=== PATIENT | female | born 1955 | race Caucasian/White ===

== ENCOUNTER → 2017-07-28 | Outpatient (CLI) | payer OTHER ==
[~2017-07-28] MED LIST: ACETAMINOPHEN-1 EAC1 PO; ACETAMINOPHEN-1 EAC2; AMARYL1 MG; AMARYL2 MG PO; AMITRIPTYLINE H10 M1; AMITRIPTYLINE H50 M3; AMITRIPTYLINE H50 M4 PO; AMLODIPINE BESYL5 MG PO; ASPIRIN81 M2 PO; ATORVASTATIN CA40 MG PO; AUGMENTIN 500-1 EACH PO; CELEXA20 MG PO; CLOPIDOGREL75 MG PO; FLEXERIL PO; GABAPENTIN100 MG PO; GLUCOPHAGE1000 MG PO; GLUCOPHAGE500 MG PO; HYDROCHLOROTH12.5 M2 PO; IBUPROFEN 800800 M1 PO; JANUVIA100 MG PO; LOSARTAN POTAS100 MG PO; MOBIC15 MG PO; NAPROSYN500 MG PO; NEURONTIN600 MG PO; PLAVIX 75 MG TA75 M1 PO; TRAMADOL 50 MG50 MG PO; ULTRAM 50MG TAB50 MG PO; ZANAFLEX4 M1 PO
[2017-07-28 11:06] LABS: CHOLESTEROL 166 mg/dL (<200); HDL CHOLESTEROL 61 mg/dL (>40); LDL CHOLESTEROL 78 mg/dL (<100); SERUM ASSESSMENT Clear; TC:HDL 2.7 Ratio (Not establshd); TRIGLYCERIDE 137 mg/dL (<150); VLDL 27 mg/dL (<40)
== END ==
LOC: M.CT 08:48
PROVIDERS: Family Medicine
DX: K57.30 Diverticulosis of large intestine without perforation or abscess without bleeding (principal); N28.9 Disorder of kidney and ureter, unspecified; I10 Essential (primary) hypertension; E78.00 Pure hypercholesterolemia, unspecified

== ENCOUNTER → 2017-11-24 | Outpatient (CLI) | payer OTHER | LOC: M.ULTRA 13:19 | DX: N94.89 Other specified conditions associated with female genital organs and menstrual cycle (principal); Z90.710 Acquired absence of both cervix and uterus ==

== ENCOUNTER → 2018-11-02 | Outpatient (CLI) | payer OTHER ==
[~2018-11-02] MED LIST changes: +IBUPROFEN 600600 M1 PO
== END ==
LOC: M.ULTRA 10-26 11:30
DX: Z08 Encounter for follow-up examination after completed treatment for malignant neoplasm (principal); C56.9 Malignant neoplasm of unspecified ovary; Z72.0 Tobacco use

== ENCOUNTER → 2020-01-05 | Outpatient (CLI) | payer OTHER ==
[~2020-01-05] MED LIST changes: +ALBUTEROL2.5 MG/31 INH; +BENICAR40 MG PO; +MOBIC7.5 MG PO; +MUCINEX1200 MG PO; +NORVASC5 MG PO; +PREDNISONE 20 M20 MG PO; +TESSALON PERLE100 MG PO
== END ==
LOC: M.ULTRA 12:56
PROVIDERS: ATTEND Orthopaedic Surgery Sports Medicine
DX: C56.1 Malignant neoplasm of right ovary (principal); N94.89 Other specified conditions associated with female genital organs and menstrual cycle; M25.551 Pain in right hip